=== PATIENT | female | born 1995 | race Caucasian/White ===

== ENCOUNTER 2018-05-30 11:19 | Emergency (ER) | payer MEDICAID ==
[~2018-05-30] VITALS: Ht 170.2 cm; Wt 75.7 kg
[2018-05-30 11:56] VITALS: Ht 170.2 cm; Wt 75.7 kg
[2018-05-30 14:41] VITALS: BP 115/69
== END 2018-05-30 14:41 | disposition home or self-care (01) ==
LOC: ED 11:19
DX: S61.301A Unspecified open wound of left index finger with damage to nail, initial encounter (principal); W22.8XXA Striking against or struck by other objects, initial encounter; Y93.89 Activity, other specified; Y92.810 Car as the place of occurrence of the external cause; Y99.8 Other external cause status
CPT/HCPCS: 90715; A4570; J2001